=== PATIENT | female | born 1950 | race Caucasian/White ===

== ENCOUNTER 2019-11-04 18:22 | Inpatient (IN) | payer OTHER, MEDICARE ==
[2019-11-04] MEDS ORDERED: Senokot S 8.6-50 MG TAB PO PRN (19:14)
[2019-11-04] MEDS ORDERED: Ondansetron ODT 4 MG TAB PO PRN (19:14)
[2019-11-04 19:24] VITALS: BMI 31.4
[2019-11-04] MEDS ORDERED: Dextrose 50% Abboject 50 ML SYRINGE SLOW IVP PRN (19:32)
[2019-11-04] MEDS ORDERED: Albuterol Sulfate 2.5 mg/3 ml Neb NEB PRN (20:06)
[2019-11-04] MEDS ORDERED: fentaNYL 50 mcg/hour Patch TD SCH (21:00)
[2019-11-04] MEDS: Atorvastatin Calcium 10 MG TAB PO SCH ×2 (21:45→21:46)
[2019-11-04] MEDS: Docusate 100 MG CAP PO SCH (21:45)
[2019-11-04] MEDS: Amitriptyline HCl 25 MG TAB PO SCH (21:45)
[2019-11-04] MEDS: Budesonide 0.5 MG/2 ML NEB NEB SCH (21:47)
[2019-11-04] MEDS: Arformoterol 15 MCG/2 ML NEB NEB SCH (21:47)
--- NOTE | 2019-11-05 01:46 | HP ---
CHIEF COMPLAINT: Admission following right leg fracture. HISTORY OF PRESENT ILLNESS: The patient is a 68-year-old female with a past medical history of CAD, CKD, diabetes, chronic systolic CHF with an EF of 45% to 50%, and COPD with chronic O2 use, who initially was admitted to [facility] in [place] with MIL in August and after discharging home, fell twice. The patient suffered a right distal comminuted femur fracture as well as a right fibular fracture and has since been hospitalized at [facility]. The patient was deemed to be nonoperative and is in a straight leg brace and will be nonweightbearing on the right leg for quite some time. The patient is due to have followup with Dr. Bishop with Orthopedics in 4 weeks. During the course of the hospitalization, the patient developed coffee-grounds emesis and her hemoglobin was dropping. She was seen in consultation with Dr. Leon, who did an EGD and showed an area of oozing at the anastomosis from her gastric bypass. She is now on Protonix twice a day. She did receive 1 unit of packed red blood cells while in the hospital and her hemoglobin was stable at 8.7 this morning. The patient states that she has had a history of depression and has had suicidal attempts in 2 to 3 years ago and states that she is still depressed, but not actively suicidal at this moment. The patient also has chronic Percocet usage for at least 15 years, taking 10/325 at least 4 a day, sometimes more and sometimes less. During recent hospitalization , she was placed on a fentanyl patch and she has this on currently and it is due to be changed today. The patient was sent to [facility] without report being called between the nursing staff. The patient states she does have what pain in the right leg, but the pain is manageable and has gotten a little bit better over the past few days. PAST MEDICAL HISTORY: 1. Coronary artery disease. 2. History of CT x2 with stent placement x1. 3. CKD, stage 4. 4. Rheumatoid arthritis. 5. Type 2 diabetes. 6. Chronic systolic CHF with an EF of 45% to 50%. 7. COPD with chronic O2 usage of 4 L. PAST SURGICAL HISTORY: 1. Cholecystectomy. 2. Hysterectomy. 3. Appendectomy. 4. Gastric bypass. 5. Bilateral hip replacements. 6. Bilateral knee replacements. 7. Right shoulder surgery. 8. Right elbow surgery. ALLERGIES: NITROFURANTOIN. FAMILY HISTORY: Mom has had a stroke. Dad of an CT at 67 and multiple siblings have had diabetes and complications from diabetes. MEDICATIONS: 1. Protonix 40 mg p.o. b.i.d. 2. Pravastatin 40 mg p.o. at bedtime. 3. Actos 30 mg p.o. daily. 4. Gabapentin. Dosage is unknown on gabapentin. We will have to verify with the pharmacy as what we have is 400 mg twice a day. The patient states she takes 1200 mg twice a day. 5. Cymbalta 60 mg p.o. daily. 6. Cardizem 180 mg p.o. daily, extended release. 7. Hydroxychloroquine 200 mg p.o. daily. 8. Sulfasalazine 500 mg p.o. b.i.d. 9. Amitriptyline 25 mg p.o. at bedtime. 10. Bupropion XL 150 mg p.o. daily. 11. Metoprolol 25 mg p.o. b.i.d. 12. Fentanyl 50 mcg Duragesic patch q.72 hours. 13. Albuterol nebs q.4 hours p.r.n. 14. Budesonide nebs b.i.d. 15. Brovana inhaled twice a day. 16. Aspirin 81mg p.o. daily. 17. Docusate 100 mg p.o. b.i.d. 18. Zofran 4 mg p.o. q.8 hours p.r.n. 19. Folic acid 1 mg p.o. daily. 20. Iron sulfate 325 mg p.o. daily. REVIEW OF SYSTEMS: GENERAL: Negative for fever or chills. EYES: Negative for vision changes or eye pain. HEENT: Negative for sore throat, rhinorrhea, or nasal congestion. CARDIOVASCULAR: Negative for chest pain, palpitations, or PND. LUNGS: Negative for cough or wheezing. The patient does have some chronic shortness of breath with routine oxygen use at 4 L. GI: No current nausea or vomiting, but recent history of GI bleed. : Negative for dysuria or polyuria. MUSCULOSKELETAL: Positive for muscle aches, joint pain, and joint swelling. NEUROLOGIC: Negative for syncope or seizure. PSYCHIATRIC: Positive for depression with history of suicidal attempt. Negative for anxiety. PHYSICAL EXAMINATION: VITAL SIGNS: Temperature 98.3, pulse 68, respiratory rate 18, O2 saturation 98 % on 4 L via nasal cannula, and blood pressure 109/54. GENERAL: The patient is awake, alert, and is mildly confused, in no acute distress. HEENT: Eyes; pupils are equal, round, reactive to light and accommodation. Extraocular muscles intact. Oropharynx and nasopharynx without erythema or exudate. NECK: Supple without lymphadenopathy, thyromegaly, or bruits. CARDIOVASCULAR: Regular rate and rhythm without murmurs, gallops, or rubs. LUNGS: Clear to auscultation bilaterally without wheezing or rhonchi. ABDOMEN: Soft, nontender, and nondistended. Bowel sounds present. EXTREMITIES: There is no clubbing or cyanosis, but there is trace pedal edema. SKIN: The patient has an ulceration on her left anterior maher that has been present for multiple weeks and has a skin tear on her back and a dressing on her right lower abdomen lateral hip area. NEUROLOGIC: Cranial nerves 2 through 12 are grossly intact. Sensation is within normal limits. MUSCULOSKELETAL: The patient has full range of motion of the left lower extremity and bilateral upper extremities, but right lower extremities in a straight leg brace. Strength is intact. PSYCHIATRIC: The patient has a somewhat flat affect and frequently closes her eyes while talking to us. LABORATORY DATA: CBC: WBC 7.0, hemoglobin 8.6, hematocrit 28.4, and platelet count 182. Accu-Cheks have been 182, 120, 212, 225. BMP: Sodium 141, potassium 4.0, chloride 105, bicarb 26, BUN 20, creatinine 1.41, glucose 158, and calcium 8.9. ASSESSMENT AND PLAN: The patient is a 68-year-old female with a distal right comminuted femur fracture and right fibular fracture. 1. Right distal comminuted femur fracture and right fibular fracture: The patient is in a straight leg brace. She is nonweightbearing until cleared by Orthopedics. She is due to have a followup appointment in 4 weeks, but it is expected that she could be nonweightbearing for 6 to 12 weeks. We will consult PT and OT to work on strength and transfers. We will continue the fentanyl patch currently for pain control with tramadol for breakthrough. 2. Upper gastrointestinal bleed with anemia: The patient will continue on Protonix twice a day. We will repeat a CBC in the morning to trend her hemoglobin. 3. Type 2 diabetes: Continue current medications for diabetes and we will add sliding scale insulin. 4. Chronic systolic congestive heart failure with an EF of 45% to 50%: We will monitor for signs of fluid overload. Continue current medications. 5. Chronic obstructive pulmonary disease with chronic respiratory failure: We will continue oxygen at 4 L nasal cannula. Continue COPD medications and have nebs as needed. 6. Chronic kidney disease, stage 4: The patient's creatinine had improved to 1.41 today with an estimated GFR of 37 which puts in stage 3. We will continue to monitor this and try to avoid nephrotoxic agents as able. 7. Deep venous thrombosis prophylaxis: The patient will not be placed on anticoagulation secondary to recent bleed. 8. Gastrointestinal prophylaxis with Protonix. Job ID: [id number] MTDD
[2019-11-05 05:42] LABS: Band 4 % (5-11); Eosinophils 6 % (0-10); Hemoglobin 7.2 g/dL (12.0-16.0); Hypochromia MODERATE=16-30 cells (100X) (0-5/hpf); Lymphocytes 28 % (21-51); MDiff Complete? YES; Mean Corpuscular HGB CONC 29.6 g/dL (32.0-36.0); Mean Corpuscular Volume 97.8 fL (78.0-98.0); Mean Platelet Volume 7.1 fL (7.4-10.4); Monocytes 10 % (0-10); Neutrophil 52 % (42-75); Platelet Count 184 thou/uL (130-400); Platelet Morphology Comment Appears Adequate; RBC Distribution Width 14.2 % (11.5-14.5); Red Blood Cell (RBC) Count 2.48 mill/uL (4.20-5.40); White Blood Cell (WBC) Count 5.7 thou/uL (4.8-10.8)
[2019-11-05 05:45] LABS: ALT (SGPT) Less than 6 U/L (8-55); AST (SGOT) 10 U/L (5-34); Albumin 2.8 g/dL (3.4-4.8); Alkaline Phosphatase 47 U/L (40-110); Anion Gap 13 mmol/L (10-20); BUN (Urea Nitrogen) 23 mg/dL (9.8-20.1); Bilirubin, Total 0.3 mg/dL (0.2-1.2); Calc. Creatinine Clearance 54 mL/min (70-130); Calcium 8.7 mg/dL (7.8-10.44); Carbon Dioxide 26 mmol/L (23-31); Chloride 106 mmol/L (98-107); Estimated GFR-MDRD 32; Globulin 2.6 g/dL (2.4-3.5); Glucose 160 mg/dL (80-115); Potassium 4.3 mmol/L (3.5-5.1); Protein, Total 5.4 g/dL (6.0-8.3); Sodium 141 mmol/L (136-145)
[2019-11-05] MEDS: HumaLOG 300 UNITS/3 ML VIAL SC PRN ×3 (06:39→21:33)
[2019-11-05] MEDS: Pioglitazone HCl 15 MG TAB PO SCH (09:22)
[2019-11-05] MEDS: DULoxetine 30 MG CAP PO SCH (09:23)
[2019-11-05] MEDS: Hydroxychloroquine Sulfate 200 MG TAB PO SCH (09:23)
[2019-11-05] MEDS: Folic Acid 1 MG TAB PO SCH (09:23)
[2019-11-05] MEDS: Aspirin 81 mg Enteric Coated Tablet PO SCH (09:23)
[2019-11-05] MEDS: traMADol HCl 50 MG TAB PO PRN ×2 (09:24→21:20)
[2019-11-05] MEDS: Docusate 100 MG CAP PO SCH ×2 (09:24→21:09)
[2019-11-05] MEDS: Metoprolol Tartrate 25 MG TAB PO SCH (09:24)
[2019-11-05] MEDS: Budesonide 0.5 MG/2 ML NEB NEB SCH ×2 (09:28→21:14)
[2019-11-05] MEDS: Arformoterol 15 MCG/2 ML NEB NEB SCH ×2 (09:31→21:11)
--- NOTE | 2019-11-05 12:53 | PRG ---
DATE OF SERVICE: 11/05/2019 SUBJECTIVE: The patient is a 68-year-old female who was transferred to [place] last night for rehabilitation. The patient has a right distal comminuted femur fracture as well as a fibular fracture. The patient also had coffee-ground emesis with upper GI bleed while in the hospital as well, was noted to have oozing around her Dagmar-en-Y anastomosis. The patient's hemoglobin was 8.6 when she discharged yesterday. Today, the patient was quite confused. She does not know where she is. She does not remember being transferred to [place] and she has no idea why she would have been transferred to [place] this morning. OBJECTIVE: VITAL SIGNS: Temperature 97.1, pulse 85, respiratory rate 20, O2 saturation 95% on 4 L nasal cannula, and blood pressure 111/53. GENERAL: The patient is awake, but somewhat confused, in no acute distress. CARDIOVASCULAR: Regular rate and rhythm without murmurs, gallops, or rubs. LUNGS: Clear to auscultation bilaterally without wheezing or rhonchi. ABDOMEN: Soft, nontender, and nondistended. Bowel sounds present. EXTREMITIES: No clubbing or cyanosis. The patient has some trace pedal edema. MUSCULOSKELETAL: The patient has straight leg brace on the right leg. PSYCHIATRIC: The patient was just overall confused and takes a while to answer questions. LABORATORY DATA: CBC: WBCs 5.7, hemoglobin 7.2, hematocrit 24.2, and platelet count 184. CMP: Sodium 141, potassium 4.3, chloride 106, bicarb 26, BUN 23, creatinine 1.58, glucose 160, calcium 8.7, total bilirubin 0.3, AST 10, ALT less than 6, alkaline phosphatase 47, total protein 5.4, albumin 2.8. Accu-Cheks 188, 165, 187. ASSESSMENT AND PLAN: 1. Right comminuted distal femur fracture with right fibular fracture: The patient will begin working with therapy services today. She is nonweightbearing on that right lower extremity, but the goal is to help work her with transfers. I have also been talked to the case work aide to help us figure out what the safe plan for her going forward will be. 2. Upper gastrointestinal bleed with anemia: The patient's hemoglobin has dropped from 8.6 to 7.2 this morning. There has been no vomiting that we know of, and the patient does not think she is having any blood in her stool. We are going to repeat her CBC this afternoon, and her hemoglobin continues to fall. She may need to be transferred back to the hospital in [place]. 3. Type 2 diabetes: Continue current medications and Accu-Cheks with sliding scale insulin. 4. Chronic kidney disease, stage 2: The patient's GFR is currently 32. Her creatinine did increase a little bit. We will continue to trend this. 5. Hypertension: Blood pressure stable. 6. Chronic obstructive pulmonary disease with chronic respiratory failure: The patient remains on oxygen via nasal cannula, O2 sats are stable. Lungs are clear. 7. Chronic systolic congestive heart failure with an ejection fraction of 45% to 50%. There are no signs of fluid overload. At this time, we will continue her current medications. Job ID: [id number]
[2019-11-05 15:41] LABS: #Lymphocytes 1.3 thou/uL (1.20-3.40); Differential Comment SCANNED; Hemoglobin 7.5 g/dL (12.0-16.0); Mean Corpuscular HGB CONC 29.9 g/dL (32.0-36.0); Mean Corpuscular Hemoglobin 29.2 pg (27.0-31.0); Mean Corpuscular Volume 97.9 fL (78.0-98.0); Platelet Count 198 thou/uL (130-400); RBC Distribution Width 14.2 % (11.5-14.5); Red Blood Cell (RBC) Count 2.57 mill/uL (4.20-5.40); White Blood Cell (WBC) Count 5.6 thou/uL (4.8-10.8)
[2019-11-05 15:42] LABS: %Neutrophils 60.4 % (42.0-75.0)
[2019-11-05 15:43] LABS: #Basophils 0.1 thou/uL (0.0-0.2); #Eosinphils 0.2 thou/uL (0.0-0.7); #Monocytes 0.8 thou/uL (0.11-0.59); #Neutrophils 3.6 thou/uL (1.40-6.50); %Basophils 1.2 % (0.0-1.0); %Eosinophils 2.8 % (0.0-10.0); %Monocytes 13.6 % (0.0-10.0)
[2019-11-05] MEDS: Amitriptyline HCl 25 MG TAB PO SCH (21:09)
[2019-11-05] MEDS: Atorvastatin Calcium 10 MG TAB PO SCH ×2 (21:09→21:11)
[2019-11-06 05:25] LABS: Band 4 % (5-11); Eosinophils 4 % (0-10); Hemoglobin 7.3 g/dL (12.0-16.0); Lymphocytes 28 % (21-51); MDiff Complete? YES; Mean Corpuscular Hemoglobin 29.7 pg (27.0-31.0); Mean Corpuscular Volume 96.1 fL (78.0-98.0); Mean Platelet Volume 6.6 fL (7.4-10.4); Monocytes 13 % (0-10); Neutrophil 51 % (42-75); Platelet Count 199 thou/uL (130-400); Platelet Morphology Comment Appears Adequate; RBC Morphology Normal; Red Blood Cell (RBC) Count 2.45 mill/uL (4.20-5.40); White Blood Cell (WBC) Count 4.5 thou/uL (4.8-10.8)
[2019-11-06] MEDS: HumaLOG 300 UNITS/3 ML VIAL SC PRN ×3 (05:32→17:20)
--- NOTE | 2019-11-06 09:32 | PRG ---
DATE OF SERVICE: 11/06/2019 SUBJECTIVE: The patient is a 68-year-old female undergoing rehabilitation following falls with comminuted right femur fracture and right fibular fracture. The patient has also had recent GI bleed with anemia. The patient is currently on a fentanyl patch to control her pain, but states that is not enough for her pain. There is some question about whether her gabapentin dose is appropriate and the housekeeper caregiver is planning on calling the pharmacy today to verify about her home doses. OBJECTIVE: VITAL SIGNS: Temperature 96.9, pulse 79, respiration rate 20, O2 saturation 92% on 4 L. Blood pressure 106/52. GENERAL: The patient is awake and alert and in no acute distress. CARDIOVASCULAR: Regular rate and rhythm without murmurs, gallops, or rubs. LUNGS: Clear to auscultation bilaterally without wheezing or rhonchi. ABDOMEN: Soft, nontender, nondistended. Bowel sounds present. EXTREMITIES: No clubbing or cyanosis. There is some trace pedal edema bilaterally. MUSCULOSKELETAL: The patient has a straight leg brace on the right lower extremity. SKIN: There is a dressing on the left maher. PSYCHIATRIC: The patient displays appropriate mood and affect. However, she is somewhat confused about exactly what has been going on in the past couple of days. LABORATORY DATA: CBC: WBCs 4.5, hemoglobin 7.3, hematocrit 23.5, platelet count 199. Accu-Cheks 203, 215, 165. ASSESSMENT AND PLAN: 1. Right distal comminuted femur fracture and right fibular fracture: The patient remains in a straight leg brace. She will continue to work with PT and OT. Pain control has been challenging as the patient has a long-standing history of opioid dependence. We will continue with her fentanyl patch. If her gabapentin dose is in fact higher, we will adjust that and for right now continue tramadol for breakthrough. I discussed changing back to her home Percocet, but she did not think that would be enough either. 2. Anemia due to blood loss: The patient has not had any more coffee-grounds emesis and to her knowledge does not have any blood in her stool. However, her hemoglobin remains low. We will continue to trend this. If it starts to drop, she may need further GI intervention. She remains on PPI twice a day. We are continuing iron. 3. Chronic kidney disease stage 3: GFR yesterday was above 30. We will continue to monitor and try to avoid nephrotoxic agents as needed. 4. Type 2 diabetes: Continue sliding scale insulin. There were a couple of sugars in the low 200s yesterday, but patient is just now starting to eat. We can adjust medications based on what her sugars are for the next few days. 5. Chronic systolic congestive heart failure with an EF of 45% to 50%: No signs of volume overload. The patient appears to be at her baseline. 6. Hypertension. Blood pressure controlled. Job ID: [id number] MTDD
[2019-11-06] MEDS ORDERED: Gabapentin 400 MG CAP PO SCH (09:45)
[2019-11-06] MEDS: Hydroxychloroquine Sulfate 200 MG TAB PO SCH (09:59)
[2019-11-06] MEDS: Docusate 100 MG CAP PO SCH ×2 (09:59→21:30)
[2019-11-06] MEDS: DULoxetine 30 MG CAP PO SCH (10:00)
[2019-11-06] MEDS: Folic Acid 1 MG TAB PO SCH (10:00)
[2019-11-06] MEDS: Pioglitazone HCl 15 MG TAB PO SCH (10:01)
[2019-11-06] MEDS: Metoprolol Tartrate 25 MG TAB PO SCH (10:02)
[2019-11-06] MEDS: Aspirin 81 mg Enteric Coated Tablet PO SCH (10:02)
[2019-11-06] MEDS: Budesonide 0.5 MG/2 ML NEB NEB SCH ×2 (10:04→21:30)
[2019-11-06] MEDS: traMADol HCl 50 MG TAB PO PRN (10:53)
[2019-11-06] MEDS: Arformoterol 15 MCG/2 ML NEB NEB SCH ×2 (10:56→21:30)
[2019-11-06] MEDS: Atorvastatin Calcium 10 MG TAB PO SCH ×2 (21:30→21:31)
[2019-11-06] MEDS: Amitriptyline HCl 25 MG TAB PO SCH (21:30)
[2019-11-06] MEDS: Gabapentin 400 MG CAP PO SCH (21:30)
[2019-11-07 05:13] LABS: Eosinophils 3 % (0-10); Hemoglobin 7.2 g/dL (12.0-16.0); Hypochromia SLIGHT = 6-15 cells (100X) (0-5/hpf); Lymphocytes 37 % (21-51); MDiff Complete? YES; Mean Corpuscular Hemoglobin 29.7 pg (27.0-31.0); Mean Corpuscular Volume 95.8 fL (78.0-98.0); Mean Platelet Volume 6.5 fL (7.4-10.4); Monocytes 14 % (0-10); Neutrophil 46 % (42-75); Platelet Count 212 thou/uL (130-400); Platelet Morphology Comment Appears Adequate; RBC Distribution Width 14.4 % (11.5-14.5); Red Blood Cell (RBC) Count 2.42 mill/uL (4.20-5.40); White Blood Cell (WBC) Count 4.6 thou/uL (4.8-10.8)
[2019-11-07 05:39] LABS: Anion Gap 14 mmol/L (10-20); BUN (Urea Nitrogen) 28 mg/dL (9.8-20.1); Calc. Creatinine Clearance 47 mL/min (70-130); Carbon Dioxide 26 mmol/L (23-31); Chloride 106 mmol/L (98-107); Estimated GFR-MDRD 27; Glucose 109 mg/dL (80-115); Potassium 4.5 mmol/L (3.5-5.1); Sodium 141 mmol/L (136-145)
[2019-11-07] MEDS: traMADol HCl 50 MG TAB PO PRN (06:15)
[2019-11-07] MEDS: Pioglitazone HCl 15 MG TAB PO SCH (08:58)
[2019-11-07] MEDS: Docusate 100 MG CAP PO SCH ×2 (08:58→20:11)
[2019-11-07] MEDS: Hydroxychloroquine Sulfate 200 MG TAB PO SCH (08:59)
[2019-11-07] MEDS: Aspirin 81 mg Enteric Coated Tablet PO SCH (08:59)
[2019-11-07] MEDS: DULoxetine 30 MG CAP PO SCH (08:59)
[2019-11-07] MEDS: Gabapentin 400 MG CAP PO SCH ×2 (08:59→20:10)
[2019-11-07] MEDS: Folic Acid 1 MG TAB PO SCH (08:59)
[2019-11-07] MEDS: Metoprolol Tartrate 25 MG TAB PO SCH (09:00)
[2019-11-07] MEDS: Arformoterol 15 MCG/2 ML NEB NEB SCH ×2 (09:00→20:12)
[2019-11-07] MEDS: Budesonide 0.5 MG/2 ML NEB NEB SCH ×2 (09:04→20:11)
--- NOTE | 2019-11-07 09:09 | PRG ---
DATE OF SERVICE: 11/07/2019 SUBJECTIVE: The patient is a 68-year-old female, undergoing rehabilitation following right distal comminuted femur fracture as well as right fibular fracture from a fall. The patient is sitting up in bed and states that she does feel better. She was able to get the increased doses of gabapentin and tramadol yesterday and notes that she was able to sleep well and it is better controlling her pain. She denies any other chronic complaints this morning, including no shortness of breath, no cough, no abdominal pain, nausea or vomiting. OBJECTIVE: VITAL SIGNS: Temperature 98.8, pulse 66, respiratory rate 18, O2 sat 93% on 4 L, and blood pressure was 90/53. GENERAL: The patient is awake, alert, oriented, in no acute distress. CARDIOVASCULAR: Regular rate and rhythm without murmurs, gallops or rubs. LUNGS: Clear to auscultation bilaterally without wheezing or rhonchi. ABDOMEN: Soft and nontender to palpation with bowel sounds present. EXTREMITIES: No clubbing or cyanosis. The patient does have some trace pedal edema bilaterally. MUSCULOSKELETAL: The patient has a straight leg raise on the right lower extremity. PSYCHIATRIC: The patient has appropriate mood and affect and is less confused today. LABORATORY DATA: 1. CBC: WBCs 4.6, hemoglobin 7.2, hematocrit 23.2, and platelet count 212. 2. BMP: Sodium 141, potassium 4.5, chloride 106, bicarb 26, BUN 28, creatinine 1.84, glucose 109, and calcium 9.0. 3. Iron is pending. ASSESSMENT AND PLAN: 1. Right distal comminuted femur fracture with right fibular fracture: The patient remains in a straight leg brace. Her pain is better controlled with the adjusted doses of tramadol and gabapentin, and she continues on a fentanyl patch. 2. Chronic kidney disease, stage 4: Creatinine did worsen just a little bit. We will continue to trend this. Per history, she does have stage 4 chronic kidney disease, so this may be close to her baseline. We will encourage p.o. hydration. 3. Blood loss anemia: The patient's hemoglobin is 7.2, which is holding steady. She has had no acute bleeding episodes. We will continue to trend. Her iron is still pending at this time. 4. Type 2 diabetes: Blood sugars have been controlled. 5. Hypertension: The patient's blood pressure was slightly low overnight, but she is asymptomatic and is feeling well and looks good this morning. 6. Rheumatoid arthritis: The patient is planning on getting someone to bring her home sulfasalazine, so she can take it as this is not on her formulary. 7. History of gastrointestinal bleed: Continue Protonix twice a day. 8. Ulceration of the left lower extremity: Continue wound care. Job ID: [id number] MTDD
[2019-11-07] MEDS: HumaLOG 300 UNITS/3 ML VIAL SC PRN ×2 (12:00→21:43)
[2019-11-07 14:34] LABS: Iron 24 ug/dL (50-170)
[2019-11-07] MEDS: Amitriptyline HCl 25 MG TAB PO SCH (20:11)
[2019-11-07] MEDS: Atorvastatin Calcium 10 MG TAB PO SCH ×2 (20:11)
[2019-11-08 05:22] LABS: #Basophils 0.1 thou/uL (0.0-0.2); #Eosinphils 0.2 thou/uL (0.0-0.7); #Lymphocytes 1.6 thou/uL (1.20-3.40); #Monocytes 0.6 thou/uL (0.11-0.59); #Neutrophils 2.8 thou/uL (1.40-6.50); %Basophils 1.6 % (0.0-1.0); %Lymphocytes 29.8 % (21.0-51.0); %Monocytes 12.1 % (0.0-10.0); %Neutrophils 53.5 % (42.0-75.0); Hemoglobin 7.4 g/dL (12.0-16.0); Mean Corpuscular HGB CONC 29.9 g/dL (32.0-36.0); Mean Corpuscular Hemoglobin 29.1 pg (27.0-31.0); Mean Corpuscular Volume 97.4 fL (78.0-98.0); Mean Platelet Volume 6.4 fL (7.4-10.4); Platelet Count 244 thou/uL (130-400); RBC Distribution Width 14.5 % (11.5-14.5); Red Blood Cell (RBC) Count 2.55 mill/uL (4.20-5.40); White Blood Cell (WBC) Count 5.3 thou/uL (4.8-10.8)
[2019-11-08 05:40] LABS: Anion Gap 14 mmol/L (10-20); BUN (Urea Nitrogen) 34 mg/dL (9.8-20.1); Calc. Creatinine Clearance 46 mL/min (70-130); Calcium 9.1 mg/dL (7.8-10.44); Carbon Dioxide 27 mmol/L (23-31); Chloride 105 mmol/L (98-107); Estimated GFR-MDRD 27; Glucose 132 mg/dL (80-115); Potassium 4.7 mmol/L (3.5-5.1); Sodium 141 mmol/L (136-145)
[2019-11-08] MEDS: Folic Acid 1 MG TAB PO SCH (08:17)
[2019-11-08] MEDS: traMADol HCl 50 MG TAB PO PRN ×2 (08:17→15:52)
[2019-11-08] MEDS: Docusate 100 MG CAP PO SCH ×2 (08:17→20:21)
[2019-11-08] MEDS: Metoprolol Tartrate 25 MG TAB PO SCH (08:17)
[2019-11-08] MEDS: DULoxetine 30 MG CAP PO SCH (08:17)
[2019-11-08] MEDS: Aspirin 81 mg Enteric Coated Tablet PO SCH (08:17)
[2019-11-08] MEDS: Arformoterol 15 MCG/2 ML NEB NEB SCH ×2 (08:18→20:18)
[2019-11-08] MEDS: Pioglitazone HCl 15 MG TAB PO SCH (08:18)
[2019-11-08] MEDS: Budesonide 0.5 MG/2 ML NEB NEB SCH ×2 (08:18→20:20)
[2019-11-08] MEDS: Hydroxychloroquine Sulfate 200 MG TAB PO SCH (08:18)
--- NOTE | 2019-11-08 09:25 | PRG ---
DATE OF SERVICE: 11/08/2019 SUBJECTIVE: The patient is a 68-year-old female, undergoing rehabilitation. The patient states that she slept okay last night, and the pain was fairly well controlled on the right lower extremity. When I was examining the patient, physical therapy was coming in to get her ready to start therapy this morning. OBJECTIVE: VITAL SIGNS: Temperature 98.1, pulse 86, respiration rate 19, O2 saturation 91% on 4 L nasal cannula, and blood pressure 115/58. GENERAL: The patient is awake, alert, oriented, in no acute distress. CARDIOVASCULAR: Regular rate and rhythm without murmurs, gallops, or rubs. LUNGS: Clear to auscultation bilaterally without wheezing or rhonchi. ABDOMEN: Soft, nontender, and nondistended. Bowel sounds present. EXTREMITIES: There is no clubbing or cyanosis. The patient does have stable trace pedal edema bilaterally. MUSCULOSKELETAL: Straight leg brace is in place on the right. SKIN: There is a bandage in place on the left lower leg covering the ulceration. PSYCHIATRIC: The patient displays appropriate mood and affect. LABORATORY DATA: CBC: WBCs 5.3, hemoglobin 7.4, hematocrit 24.8, and platelet count 244. BMP: Sodium 141, potassium 4.7, chloride 105, bicarbonate 27, BUN 34, creatinine 1.88, glucose 132, and calcium 9.1. Iron 24. ASSESSMENT AND PLAN: 1. Right distal comminuted femur fracture with right fibular fracture: The patient remains in a straight leg brace and is nonweightbearing on the right lower extremity. She will continue PT and OT. We will continue current medications for pain control. 2. Anemia with iron deficiency and recent history of acute blood loss: We will restart the patient on iron. We are going to restart this couple of days ago, but the iron lab was pending and since it is low, we will start her on iron. We will continue to trend her hemoglobin, but it has been stable over the past several days, and she has no evidence of acute blood loss at this time. 3. Chronic kidney disease, stage 4: Creatinine appears to be near the patient's baseline. Discussed making certain that she is staying hydrated during the day. 4. Type 2 diabetes: Blood sugars were controlled. No change to medications. 5. Hypertension: Blood pressure was controlled. 6. Chronic obstructive pulmonary disease with chronic respiratory failure: The patient remains on oxygen, running at 4 L. Lungs are clear today. We will continue nebs as ordered. 7. Gastrointestinal prophylaxis with Protonix b.i.d. due to recent gastrointestinal bleed. 8. Deep venous thrombosis prophylaxis: Lovenox is held secondary to the patient's recent gastrointestinal bleed. Job ID: [id number]
[2019-11-08] MEDS: Gabapentin 400 MG CAP PO SCH ×2 (09:59→20:19)
[2019-11-08] MEDS: HumaLOG 300 UNITS/3 ML VIAL SC PRN ×2 (12:02→17:43)
[2019-11-08] MEDS: Atorvastatin Calcium 10 MG TAB PO SCH ×2 (20:20)
[2019-11-08] MEDS: Amitriptyline HCl 25 MG TAB PO SCH (20:20)
--- NOTE | 2019-11-09 09:22 | PRG ---
DATE OF SERVICE: 11/09/2019 SUBJECTIVE: The patient is a 68-year-old female, undergoing rehabilitation following right distal comminuted femur fracture and right fibular fracture. The patient stated that she rested okay overnight. The patient stated that she has been thinking about what her discharge plans will be. She knows that it will be a long time before she is cleared to walk. She does not really have any resources or family in this area and that has caused her some frustration. OBJECTIVE: VITAL SIGNS: Temperature 97.6, pulse 88, respiratory rate 18, O2 saturation 92% on 4 L nasal cannula, and blood pressure 118/55. GENERAL: The patient is awake, alert, oriented, and in no acute distress. CARDIOVASCULAR: Regular rate and rhythm without murmurs, gallops, or rubs. LUNGS: Clear to auscultation bilaterally without wheezing or rhonchi. ABDOMEN: Soft, nontender, and nondistended. Bowel sounds present. EXTREMITIES: There is no clubbing or cyanosis. There is chronic stable pedal edema. SKIN: There is a bandage in place on the left lower leg covering her ulceration. MUSCULOSKELETAL: There is a straight leg brace in place on the right lower extremity. LABORATORY DATA: Accu-Cheks 235, 199, 140, 120. ASSESSMENT AND PLAN: 1. Right distal comminuted femur fracture with right fibular fracture: Continue Therapy Services. I believe Case Management is helping to plan for whenever she will need to be discharged. Right now, we are working on hopefully trying to transfer and to increase her upper arm strength. The patient is in agreement with this plan. Continue current medications for pain relief. 2. Chronic kidney disease, stage 4: We will avoid nephrotoxic agents and continue to trend. 3. Anemia: Hemoglobin had stabilized. We will repeat her hemoglobin in the next couple of days. 4. Hypertension: Blood pressure is controlled. 5. Type 2 diabetes: Blood sugars are stable. 6. Chronic systolic congestive heart failure: No signs of acute exacerbation. 7. Gastrointestinal prophylaxis with Protonix. Due to the patient's recent gastrointestinal bleed, there is no deep venous thrombosis prophylaxis. Job ID: [id number]
[2019-11-09] MEDS: Folic Acid 1 MG TAB PO SCH (09:30)
[2019-11-09] MEDS: Budesonide 0.5 MG/2 ML NEB NEB SCH ×2 (09:30→20:44)
[2019-11-09] MEDS: DULoxetine 30 MG CAP PO SCH (09:30)
[2019-11-09] MEDS: Arformoterol 15 MCG/2 ML NEB NEB SCH ×2 (09:30→20:44)
[2019-11-09] MEDS: Pioglitazone HCl 15 MG TAB PO SCH (09:30)
[2019-11-09] MEDS: Metoprolol Tartrate 25 MG TAB PO SCH (09:30)
[2019-11-09] MEDS: traMADol HCl 50 MG TAB PO PRN ×2 (09:31→17:19)
[2019-11-09] MEDS: Hydroxychloroquine Sulfate 200 MG TAB PO SCH (09:31)
[2019-11-09] MEDS: Gabapentin 400 MG CAP PO SCH ×2 (09:32→20:43)
[2019-11-09] MEDS: Docusate 100 MG CAP PO SCH ×2 (09:32→20:43)
[2019-11-09] MEDS: Aspirin 81 mg Enteric Coated Tablet PO SCH (09:32)
[2019-11-09] MEDS: HumaLOG 300 UNITS/3 ML VIAL SC PRN ×2 (12:35→21:24)
[2019-11-09] MEDS: sulfaSALAzine 500 MG TAB PO SCH ×2 (18:31→20:44)
[2019-11-09] MEDS: Atorvastatin Calcium 10 MG TAB PO SCH (20:43)
[2019-11-09] MEDS: Amitriptyline HCl 25 MG TAB PO SCH (20:44)
[2019-11-10] MEDS: traMADol HCl 50 MG TAB PO PRN (09:11)
[2019-11-10] MEDS: Acetaminophen 325 MG TAB PO PRN (09:12)
[2019-11-10] MEDS: Docusate 100 MG CAP PO SCH ×2 (09:13→20:45)
[2019-11-10] MEDS: Metoprolol Tartrate 25 MG TAB PO SCH (09:13)
[2019-11-10] MEDS: Folic Acid 1 MG TAB PO SCH (09:13)
[2019-11-10] MEDS: Aspirin 81 mg Enteric Coated Tablet PO SCH (09:13)
[2019-11-10] MEDS: DULoxetine 30 MG CAP PO SCH (09:13)
[2019-11-10] MEDS: Hydroxychloroquine Sulfate 200 MG TAB PO SCH (09:13)
[2019-11-10] MEDS: sulfaSALAzine 500 MG TAB PO SCH ×2 (09:13→20:45)
[2019-11-10] MEDS: Gabapentin 400 MG CAP PO SCH ×2 (09:14→20:45)
[2019-11-10] MEDS: Pioglitazone HCl 15 MG TAB PO SCH (09:14)
[2019-11-10] MEDS: Arformoterol 15 MCG/2 ML NEB NEB SCH ×2 (09:14→20:46)
[2019-11-10] MEDS: Budesonide 0.5 MG/2 ML NEB NEB SCH ×2 (09:15→20:45)
[2019-11-10] MEDS: HumaLOG 300 UNITS/3 ML VIAL SC PRN ×2 (11:53→22:11)
[2019-11-10] MEDS: fentaNYL 50 mcg/hour Patch TD SCH (20:44)
[2019-11-10] MEDS: Atorvastatin Calcium 10 MG TAB PO SCH (20:45)
[2019-11-10] MEDS: Amitriptyline HCl 25 MG TAB PO SCH (20:45)
[2019-11-11] MEDS: Aspirin 81 mg Enteric Coated Tablet PO SCH (08:23)
[2019-11-11] MEDS: Folic Acid 1 MG TAB PO SCH (08:24)
[2019-11-11] MEDS: Metoprolol Tartrate 25 MG TAB PO SCH (08:24)
[2019-11-11] MEDS: sulfaSALAzine 500 MG TAB PO SCH ×2 (08:24→21:06)
[2019-11-11] MEDS: Gabapentin 400 MG CAP PO SCH ×2 (08:26→21:06)
[2019-11-11] MEDS: Acetaminophen 325 MG TAB PO PRN (08:26)
[2019-11-11] MEDS: Pioglitazone HCl 15 MG TAB PO SCH (08:26)
[2019-11-11] MEDS: Docusate 100 MG CAP PO SCH ×2 (08:27→21:06)
[2019-11-11] MEDS: traMADol HCl 50 MG TAB PO PRN (08:27)
[2019-11-11] MEDS: DULoxetine 30 MG CAP PO SCH (08:29)
[2019-11-11] MEDS: Hydroxychloroquine Sulfate 200 MG TAB PO SCH (08:29)
[2019-11-11] MEDS: Budesonide 0.5 MG/2 ML NEB NEB SCH ×2 (08:30→21:05)
[2019-11-11] MEDS: Arformoterol 15 MCG/2 ML NEB NEB SCH ×2 (08:30→20:55)
[2019-11-11] MEDS: HumaLOG 300 UNITS/3 ML VIAL SC PRN (17:08)
--- NOTE | 2019-11-11 19:19 | PRG ---
DATE OF SERVICE: 11/11/2019 SUBJECTIVE: The patient is at [facility] for rehabilitation following a right distal comminuted femur fracture and right fibular fracture. The patient states that she did not sleep very well last night. She states that she feels like she is struggling with the pain a little bit more, but then later in the conversation, she states that the pain medicines are working very well. The patient is somewhat confused at times. OBJECTIVE: VITAL SIGNS: Temperature 97.9, pulse 89, respiration rate 18, O2 saturation 92% on 4 L, and blood pressure 127/55. GENERAL: The patient is awake, alert, somewhat confused, and in no acute distress. CARDIOVASCULAR: Regular rate and rhythm without murmurs, gallops, or rubs. LUNGS: Clear to auscultation bilaterally without wheezing or rhonchi. ABDOMEN: Soft, nontender, and nondistended. Bowel sounds present. EXTREMITIES: There is no clubbing or cyanosis. The patient does have stable pedal edema. SKIN: There is a bandage in place on the left lower extremity covering an ulcer. MUSCULOSKELETAL: The patient has a straight leg brace in place. LABORATORY DATA: Accu-Cheks 230, 137, 202, and 196. ASSESSMENT AND PLAN: 1. Right distal comminuted femur fracture with right fibular fracture: The patient will continue working with Therapy Services. The patient needs to build up her arm strength to kind of help with transfers. 2. Generalized deconditioning: As above. 3. Type 2 diabetes: Blood sugars are stable. Continue current management. 4. Hypertension: Blood pressure is well controlled. 5. Chronic obstructive pulmonary disease: Continue oxygen at current levels and breathing treatments as indicated. 6. Chronic kidney disease stage 4: We will repeat BMP in the morning. 7. Anemia: Repeat CBC in the morning to make certain hemoglobin is remaining stable. 8. Disposition: The patient needs to talk with Case Management when they are here tomorrow to discuss what discharge plans look like as the patient would not be safe to go home by herself. Job ID: [id number]
[2019-11-11] MEDS: Atorvastatin Calcium 10 MG TAB PO SCH (21:06)
[2019-11-11] MEDS: Amitriptyline HCl 25 MG TAB PO SCH (21:06)
[2019-11-12 05:54] LABS: #Basophils 0.1 thou/uL (0.0-0.2); #Eosinphils 0.2 thou/uL (0.0-0.7); #Lymphocytes 1.5 thou/uL (1.20-3.40); #Monocytes 0.6 thou/uL (0.11-0.59); #Neutrophils 3.1 thou/uL (1.40-6.50); %Basophils 0.9 % (0.0-1.0); %Eosinophils 3.1 % (0.0-10.0); %Lymphocytes 27.2 % (21.0-51.0); %Monocytes 11.6 % (0.0-10.0); %Neutrophils 57.2 % (42.0-75.0); Hemoglobin 7.3 g/dL (12.0-16.0); Mean Corpuscular HGB CONC 29.4 g/dL (32.0-36.0); Mean Corpuscular Hemoglobin 28.9 pg (27.0-31.0); Mean Corpuscular Volume 98.5 fL (78.0-98.0); Mean Platelet Volume 6.3 fL (7.4-10.4); Platelet Count 277 thou/uL (130-400); RBC Distribution Width 14.4 % (11.5-14.5); Red Blood Cell (RBC) Count 2.53 mill/uL (4.20-5.40); White Blood Cell (WBC) Count 5.5 thou/uL (4.8-10.8)
[2019-11-12 06:07] LABS: Anion Gap 14 mmol/L (10-20); BUN (Urea Nitrogen) 38 mg/dL (9.8-20.1); Calc. Creatinine Clearance 45 mL/min (70-130); Calcium 8.9 mg/dL (7.8-10.44); Carbon Dioxide 29 mmol/L (23-31); Chloride 103 mmol/L (98-107); Estimated GFR-MDRD 26; Glucose 101 mg/dL (80-115); Sodium 141 mmol/L (136-145)
[2019-11-12] MEDS: Aspirin 81 mg Enteric Coated Tablet PO SCH (09:08)
[2019-11-12] MEDS: Arformoterol 15 MCG/2 ML NEB NEB SCH ×2 (09:08→21:19)
[2019-11-12] MEDS: Budesonide 0.5 MG/2 ML NEB NEB SCH ×2 (09:08→21:24)
[2019-11-12] MEDS: DULoxetine 30 MG CAP PO SCH (09:09)
[2019-11-12] MEDS: Pioglitazone HCl 15 MG TAB PO SCH (09:09)
[2019-11-12] MEDS: Metoprolol Tartrate 25 MG TAB PO SCH (09:09)
[2019-11-12] MEDS: Docusate 100 MG CAP PO SCH ×2 (09:09→21:24)
[2019-11-12] MEDS: Gabapentin 400 MG CAP PO SCH ×2 (09:09→21:23)
[2019-11-12] MEDS: sulfaSALAzine 500 MG TAB PO SCH ×2 (09:10→21:24)
[2019-11-12] MEDS: Hydroxychloroquine Sulfate 200 MG TAB PO SCH (09:10)
[2019-11-12] MEDS: Folic Acid 1 MG TAB PO SCH (09:10)
[2019-11-12] MEDS: traMADol HCl 50 MG TAB PO PRN ×2 (09:25→21:26)
--- NOTE | 2019-11-12 09:42 | PRG ---
DATE OF SERVICE: 11/12/2019 SUBJECTIVE: The patient is a 68-year-old female, undergoing rehabilitation following right distal femur fracture and right fibular fracture. The patient was initially sleeping when I walked into the room and you could hear some gurgling sounds. When she woke up, she has crackles in her lungs and a wet sounding cough. She denies shortness of breath and notes pain has been controlled. PHYSICAL EXAMINATION: VITAL SIGNS: Temperature 99.0, pulse 90, respiration rate 22, O2 saturation 90 % on 3.5 L, blood pressure 117/58. GENERAL: The patient is now awake, alert, and in no acute distress. CARDIOVASCULAR: Regular rate and rhythm without murmurs, gallops, or rubs. LUNGS: Crackles in bilateral bases with some upper respiratory sounds as well. Normal respiratory effort. ABDOMEN: Soft, nontender, nondistended. Bowel sounds present. EXTREMITIES: There is no clubbing or cyanosis. There is trace pedal edema, but this is stable. MUSCULOSKELETAL: The patient has straight leg brace on the right lower extremity. PSYCHIATRIC: The patient displays an appropriate mood and affect. LABORATORY DATA: 1. CBC: WBCs 5.5, hemoglobin 7.3, hematocrit 24.9, platelet count 277. 2. BMP: Sodium 141, potassium 5.0, chloride 103, bicarb 29, BUN 38, creatinine 1.90, glucose 101, calcium 8.9. 3. Accu-Cheks 202, 196, 74, 97. ASSESSMENT AND PLAN: 1. Right distal comminuted femur fracture and right fibular fracture: The patient will continue therapy services. She plans to speak with Case Management as she is available today to discuss discharge plans when it becomes time. 2. Chronic congestive heart failure with an EF of 45% to 50%: The patient has new crackles in the lungs today. We will add a BNP and get a chest x-ray. She did have a temp of 99.0. CHF and possible pneumonia are both in the differential. 3. Chronic kidney disease stage 4, creatinine is stable at 1.9. We will continue to monitor. 4. Anemia: The patient had a GI bleed in a recent hospitalization. Her hemoglobin has been holding steady between 7.3 and 7.6. She has no signs of active bleeding. We will continue to monitor this periodically. 5. Chronic obstructive pulmonary disease: The patient remains on 3-1/2 to 4 L of oxygen at all times. We will continue the neb treatments. Getting a chest x- ray as mentioned above. 6. Type-2 diabetes: Blood sugars are well controlled. 7. Hypertension: Blood pressure is controlled. Job ID: [id number] [facility]
[2019-11-12] MEDS: HumaLOG 300 UNITS/3 ML VIAL SC PRN (13:04)
--- NOTE | 2019-11-12 16:40 | RAD ---
EXAM: Chest PA and lateral: HISTORY: Crackles in the lungs. COMPARISON: 06/05/2017, 08/27/2019 FINDINGS: Heart: Cardiomegaly. Aorta: Atherosclerosis Pulmonary vessels: Normal Costophrenic angles: Trace bilateral effusions. Lungs: There are interstitial and alveolar opacities. Pneumothorax: No pneumothorax Osseous structures: Right humeral prosthesis IMPRESSION: Congestive heart failure. Continued surveillance is recommended.
[2019-11-12] MEDS: Atorvastatin Calcium 10 MG TAB PO SCH (21:24)
[2019-11-12] MEDS: Amitriptyline HCl 25 MG TAB PO SCH (21:24)
[2019-11-13 04:52] LABS: #Basophils 0.1 thou/uL (0.0-0.2); #Eosinphils 0.2 thou/uL (0.0-0.7); #Lymphocytes 1.6 thou/uL (1.20-3.40); #Monocytes 0.7 thou/uL (0.11-0.59); #Neutrophils 4.6 thou/uL (1.40-6.50); %Basophils 0.9 % (0.0-1.0); %Eosinophils 2.3 % (0.0-10.0); %Lymphocytes 21.9 % (21.0-51.0); %Monocytes 9.6 % (0.0-10.0); %Neutrophils 65.2 % (42.0-75.0); Hemoglobin 6.9 g/dL (12.0-16.0); Mean Corpuscular HGB CONC 29.3 g/dL (32.0-36.0); Mean Corpuscular Hemoglobin 28.6 pg (27.0-31.0); Mean Corpuscular Volume 97.5 fL (78.0-98.0); Mean Platelet Volume 5.9 fL (7.4-10.4); Platelet Count 266 thou/uL (130-400); RBC Distribution Width 14.6 % (11.5-14.5); Red Blood Cell (RBC) Count 2.41 mill/uL (4.20-5.40); White Blood Cell (WBC) Count 7.1 thou/uL (4.8-10.8)
[2019-11-13 05:10] LABS: Anion Gap 13 mmol/L (10-20); BUN (Urea Nitrogen) 44 mg/dL (9.8-20.1); Calc. Creatinine Clearance 47 mL/min (70-130); Calcium 8.2 mg/dL (7.8-10.44); Carbon Dioxide 28 mmol/L (23-31); Chloride 102 mmol/L (98-107); Estimated GFR-MDRD 28; Glucose 114 mg/dL (80-115); Potassium 4.4 mmol/L (3.5-5.1); Sodium 139 mmol/L (136-145)
[2019-11-13] MEDS: Gabapentin 400 MG CAP PO SCH ×2 (08:18→21:02)
[2019-11-13] MEDS: Docusate 100 MG CAP PO SCH ×2 (08:19→21:02)
[2019-11-13] MEDS: Aspirin 81 mg Enteric Coated Tablet PO SCH (08:19)
[2019-11-13] MEDS: sulfaSALAzine 500 MG TAB PO SCH ×2 (08:19→21:02)
[2019-11-13] MEDS: Folic Acid 1 MG TAB PO SCH (08:19)
[2019-11-13] MEDS: Pioglitazone HCl 15 MG TAB PO SCH (08:19)
[2019-11-13] MEDS: Hydroxychloroquine Sulfate 200 MG TAB PO SCH (08:19)
[2019-11-13] MEDS: traMADol HCl 50 MG TAB PO PRN ×2 (08:20→17:43)
[2019-11-13] MEDS: DULoxetine 30 MG CAP PO SCH (08:20)
[2019-11-13] MEDS: Metoprolol Tartrate 25 MG TAB PO SCH (08:21)
[2019-11-13] MEDS: Arformoterol 15 MCG/2 ML NEB NEB SCH ×2 (08:21→20:58)
[2019-11-13] MEDS: Budesonide 0.5 MG/2 ML NEB NEB SCH ×2 (08:23→21:07)
[2019-11-13] MEDS: HumaLOG 300 UNITS/3 ML VIAL SC PRN ×2 (12:38→17:50)
[2019-11-13] MEDS ORDERED: Furosemide 40 MG TAB PO SCH (14:45)
--- NOTE | 2019-11-13 15:06 | PRG ---
DATE OF SERVICE: 11/13/2019 SUBJECTIVE: The patient is resting comfortably, in no acute distress. The patient notes that her breathing is a little bit better. The patient quickly falls back to sleep after answering a few questions. OBJECTIVE: VITAL SIGNS: Temperature 98.8, pulse 81, respiration rate 23, O2 saturation 98% on 3-1/2 L, blood pressure 103/51. GENERAL: The patient is awake, but sleepy, and in no acute distress. CARDIOVASCULAR: Regular rate and rhythm without murmurs, gallops, or rubs. LUNGS: Clear to auscultation bilaterally without wheezing or rhonchi. The crackles have improved. ABDOMEN: Soft, nontender, nondistended. Bowel sounds present. EXTREMITIES: There is no clubbing or cyanosis. The patient has trace pedal edema. MUSCULOSKELETAL: The patient has a straight leg brace on the right lower extremity. SKIN: The patient has a bandage in place on the left lower leg. LABORATORY DATA: 1. CBC: WBC 7.1, hemoglobin 6.9, hematocrit 23.5, platelet count 266. 2. BMP: Sodium 139, potassium 4.4, chloride 102, bicarb 28, BUN 44, creatinine 1.81, glucose 114, calcium 8.2. 3. Accu-Cheks; 139, 174, 117, 186. ASSESSMENT AND PLAN: 1. Right distal comminuted femur fracture with right fibular fracture: The patient continues to be nonweightbearing on the right lower extremity. It is very difficult to get up in out of bed. She has a PureWick catheter in place, so she cannot get up to go to the restroom. Continue therapy on Friday. 2. Acute worsening of chronic anemia in the setting of a recent gastrointestinal bleed: The patient has had no coffee-grounds emesis and no blood in stool reported. The patient's hemoglobin did drop to 6.9 today. We will type and cross 1 unit of packed cells and transfuse. 3. Chronic systolic congestive heart failure with an ejection fraction of 45% 50%: With the patient's heart failure and the patient's anemia, we will transfuse a unit and give a dose of Lasix following the transfusion. 4. Chronic kidney disease stage 4: The patient's creatinine is stable at 1.8. We will continue to monitor. 5. Chronic obstructive pulmonary disease requiring oxygen: Continue oxygen at current requirements. Continue neb treatments. Lung sounds are clearer today. 6. Type 2 diabetes: Blood sugars are controlled. Job ID: [id number]
[2019-11-13] MEDS: Acetaminophen 325 MG TAB PO PRN (17:43)
[2019-11-13] MEDS ORDERED: Sodium Chloride 0.9% 40 ML ONE (17:54)
[2019-11-13] MEDS: Amitriptyline HCl 25 MG TAB PO SCH (21:03)
[2019-11-13] MEDS: Atorvastatin Calcium 10 MG TAB PO SCH (21:03)
[2019-11-13] MEDS: fentaNYL 50 mcg/hour Patch TD SCH (21:25)
[2019-11-14 05:04] LABS: Hemoglobin 7.7 g/dL (12.0-16.0); Mean Corpuscular Volume 96.8 fL (78.0-98.0); Red Blood Cell (RBC) Count 2.63 mill/uL (4.20-5.40); White Blood Cell (WBC) Count 6.8 thou/uL (4.8-10.8)
[2019-11-14 05:05] LABS: #Basophils 0.1 thou/uL (0.0-0.2); #Eosinphils 0.2 thou/uL (0.0-0.7); #Lymphocytes 1.7 thou/uL (1.20-3.40); #Monocytes 0.6 thou/uL (0.11-0.59); #Neutrophils 4.2 thou/uL (1.40-6.50); %Basophils 1.1 % (0.0-1.0); %Eosinophils 3.5 % (0.0-10.0); %Lymphocytes 24.7 % (21.0-51.0); %Monocytes 9.6 % (0.0-10.0); %Neutrophils 61.2 % (42.0-75.0); Mean Corpuscular HGB CONC 30.1 g/dL (32.0-36.0); Mean Corpuscular Hemoglobin 29.1 pg (27.0-31.0); Mean Platelet Volume 6.5 fL (7.4-10.4); Platelet Count 274 thou/uL (130-400); RBC Distribution Width 14.5 % (11.5-14.5)
[2019-11-14 05:22] LABS: Anion Gap 13 mmol/L (10-20); Carbon Dioxide 28 mmol/L (23-31); Chloride 101 mmol/L (98-107); Potassium 4.2 mmol/L (3.5-5.1); Sodium 141 mmol/L (136-145)
[2019-11-14 05:23] LABS: BUN (Urea Nitrogen) 44 mg/dL (9.8-20.1); Calc. Creatinine Clearance 45 mL/min (70-130); Calcium 8.4 mg/dL (7.8-10.44); Estimated GFR-MDRD 26; Glucose 129 mg/dL (80-115)
[2019-11-14] MEDS: Pioglitazone HCl 15 MG TAB PO SCH (09:05)
[2019-11-14] MEDS: Gabapentin 400 MG CAP PO SCH ×2 (09:05→21:26)
[2019-11-14] MEDS: DULoxetine 30 MG CAP PO SCH (09:06)
[2019-11-14] MEDS: Folic Acid 1 MG TAB PO SCH (09:06)
[2019-11-14] MEDS: Acetaminophen 325 MG TAB PO PRN ×2 (09:07→21:31)
[2019-11-14] MEDS: Hydroxychloroquine Sulfate 200 MG TAB PO SCH (09:07)
[2019-11-14] MEDS: Metoprolol Tartrate 25 MG TAB PO SCH (09:07)
[2019-11-14] MEDS: Aspirin 81 mg Enteric Coated Tablet PO SCH (09:07)
[2019-11-14] MEDS: traMADol HCl 50 MG TAB PO PRN ×2 (09:08→21:31)
[2019-11-14] MEDS: Docusate 100 MG CAP PO SCH ×2 (09:08→21:27)
[2019-11-14] MEDS: sulfaSALAzine 500 MG TAB PO SCH ×2 (09:08→21:27)
[2019-11-14] MEDS: Arformoterol 15 MCG/2 ML NEB NEB SCH ×2 (09:10→21:11)
[2019-11-14] MEDS: Budesonide 0.5 MG/2 ML NEB NEB SCH ×2 (09:10→21:26)
[2019-11-14] MEDS: HumaLOG 300 UNITS/3 ML VIAL SC PRN (11:55)
[2019-11-14] MEDS: Atorvastatin Calcium 10 MG TAB PO SCH (21:27)
[2019-11-14] MEDS: Amitriptyline HCl 25 MG TAB PO SCH (21:27)
[2019-11-15] MEDS: traMADol HCl 50 MG TAB PO PRN ×2 (07:46→21:25)
[2019-11-15] MEDS: Acetaminophen 325 MG TAB PO PRN (07:46)
[2019-11-15] MEDS: Arformoterol 15 MCG/2 ML NEB NEB SCH ×2 (09:10→21:00)
[2019-11-15] MEDS: Aspirin 81 mg Enteric Coated Tablet PO SCH (09:10)
[2019-11-15] MEDS: Budesonide 0.5 MG/2 ML NEB NEB SCH ×2 (09:11→21:26)
[2019-11-15] MEDS: Docusate 100 MG CAP PO SCH ×2 (09:12→21:00)
[2019-11-15] MEDS: DULoxetine 30 MG CAP PO SCH (09:12)
[2019-11-15] MEDS: Folic Acid 1 MG TAB PO SCH (09:12)
[2019-11-15] MEDS: Gabapentin 400 MG CAP PO SCH ×2 (09:12→21:00)
[2019-11-15] MEDS: sulfaSALAzine 500 MG TAB PO SCH ×2 (09:13→21:00)
[2019-11-15] MEDS: Pioglitazone HCl 15 MG TAB PO SCH (09:13)
[2019-11-15] MEDS: Metoprolol Tartrate 25 MG TAB PO SCH (09:13)
[2019-11-15] MEDS: Hydroxychloroquine Sulfate 200 MG TAB PO SCH (09:14)
[2019-11-15] MEDS: HumaLOG 300 UNITS/3 ML VIAL SC PRN ×2 (11:56→17:22)
--- NOTE | 2019-11-15 18:11 | PRG ---
DATE OF SERVICE: 11/15/2019 SUBJECTIVE: The patient is a 68-year-old female, who is at [facility] for rehabilitation following a right femur fracture and right fibular fracture. The patient continues to be nonweightbearing. The patient did receive a blood transfusion over the week end and states that she had no increased shortness of breath after receiving the blood. The patient was able to rest well overnight. She continues to work with therapy and I was able to talk with therapy staff this morning, and there have not been a whole lot of improvement. The patient still requires pretty significant assist for any movement. She is not getting up to go to the restroom. She still has a PureWick catheter in place. OBJECTIVE: VITAL SIGNS: Temperature 99.0, pulse 82, respiratory rate 18, O2 saturation 93% on 3.5 L, blood pressure 116/56. GENERAL: The patient is awake, alert, and oriented and in no acute distress. CARDIOVASCULAR: Regular rate and rhythm without murmurs, gallops, or rubs. LUNGS: Clear to auscultation bilaterally without wheezing or rhonchi. ABDOMEN: Soft, nontender, nondistended with bowel sounds present. EXTREMITIES: There is no clubbing or cyanosis. The patient has stable pedal edema bilaterally. SKIN: There is a bandage in place on left lower extremity. Wound care photos have been examined and we will continue wound care. MUSCULOSKELETAL: The patient has a straight leg brace in place on the right lower extremity. LABORATORY DATA: 1. CBC: WBC 6.8, hemoglobin 7.7, hematocrit 25.5, platelet count 274. 2. Accu-Cheks 180, 129, 179, 157. ASSESSMENT AND PLAN: 1. Right distal comminuted femur fracture with right fibular fracture: The patient remains nonweightbearing on the right lower extremity. She continues PT and OT. I believe there is a care plan meeting tomorrow to try to discuss her progress and also disposition plans. The pain is stable with current medications. 2. Acute on chronic anemia: The patient's hemoglobin is improved after the 1 unit up to 7.7. She has had no bleeding episodes that we are aware of. We will continue to trend her hemoglobin with a CBC tomorrow. 3. Chronic kidney disease stage 4: Repeat BMP tomorrow. Trying to avoid nephrotoxic agents as able. 4. Type 2 diabetes: Blood sugars are controlled. 5. Chronic systolic congestive heart failure with an EF of 45% to 50%: The patient appears stable. She did receive a dose of Lasix following her transfusion. No increased edema is noted. 6. Chronic obstructive pulmonary disease with chronic oxygen requirement: Continue O2. Continue neb treatments. Lung sounds are clear today. Job ID: [id number]
[2019-11-15] MEDS: Amitriptyline HCl 25 MG TAB PO SCH (20:59)
[2019-11-15] MEDS: Atorvastatin Calcium 10 MG TAB PO SCH (21:00)
[2019-11-16 05:57] LABS: #Basophils 0.1 thou/uL (0.0-0.2); #Eosinphils 0.1 thou/uL (0.0-0.7); #Lymphocytes 1.6 thou/uL (1.20-3.40); #Monocytes 0.6 thou/uL (0.11-0.59); #Neutrophils 2.8 thou/uL (1.40-6.50); %Basophils 1.6 % (0.0-1.0); %Eosinophils 2.5 % (0.0-10.0); %Lymphocytes 31.2 % (21.0-51.0); %Monocytes 10.9 % (0.0-10.0); %Neutrophils 53.9 % (42.0-75.0); Hemoglobin 7.7 g/dL (12.0-16.0); Mean Corpuscular HGB CONC 29.9 g/dL (32.0-36.0); Mean Corpuscular Hemoglobin 28.9 pg (27.0-31.0); Mean Corpuscular Volume 96.6 fL (78.0-98.0); Mean Platelet Volume 6.7 fL (7.4-10.4); Platelet Count 292 thou/uL (130-400); RBC Distribution Width 14.3 % (11.5-14.5); Red Blood Cell (RBC) Count 2.66 mill/uL (4.20-5.40); White Blood Cell (WBC) Count 5.2 thou/uL (4.8-10.8)
[2019-11-16 06:07] LABS: Anion Gap 15 mmol/L (10-20); BUN (Urea Nitrogen) 38 mg/dL (9.8-20.1); Calc. Creatinine Clearance 48 mL/min (70-130); Calcium 8.6 mg/dL (7.8-10.44); Carbon Dioxide 27 mmol/L (23-31); Chloride 103 mmol/L (98-107); Estimated GFR-MDRD 28; Glucose 116 mg/dL (80-115); Potassium 4.5 mmol/L (3.5-5.1); Sodium 140 mmol/L (136-145)
[2019-11-16] MEDS: Acetaminophen 325 MG TAB PO PRN (08:04)
[2019-11-16] MEDS: traMADol HCl 50 MG TAB PO PRN (08:05)
[2019-11-16] MEDS: Arformoterol 15 MCG/2 ML NEB NEB SCH ×2 (09:43→21:00)
[2019-11-16] MEDS: Budesonide 0.5 MG/2 ML NEB NEB SCH ×2 (09:46→21:00)
[2019-11-16] MEDS: Docusate 100 MG CAP PO SCH ×2 (09:47→20:59)
[2019-11-16] MEDS: Pioglitazone HCl 15 MG TAB PO SCH (09:48)
[2019-11-16] MEDS: DULoxetine 30 MG CAP PO SCH (09:48)
[2019-11-16] MEDS: Metoprolol Tartrate 25 MG TAB PO SCH (09:48)
[2019-11-16] MEDS: Gabapentin 400 MG CAP PO SCH ×2 (09:48→20:59)
[2019-11-16] MEDS: Hydroxychloroquine Sulfate 200 MG TAB PO SCH (09:48)
[2019-11-16] MEDS: Folic Acid 1 MG TAB PO SCH (09:48)
[2019-11-16] MEDS: sulfaSALAzine 500 MG TAB PO SCH ×2 (09:49→21:00)
[2019-11-16] MEDS: Aspirin 81 mg Enteric Coated Tablet PO SCH (09:52)
--- NOTE | 2019-11-16 10:54 | PRG ---
DATE OF SERVICE: 11/16/2019 SUBJECTIVE: The patient is a 68-year-old female, undergoing rehabilitation following right distal femur fracture and right fibular fracture. The patient states that she was thinking about her condition yesterday and thinks that she may never walk again and she found that upsetting. She is eager to work on planning for what comes next. The patient states that her breathing is fine and her appetite is stable. OBJECTIVE: VITAL SIGNS: Temperature 98.6, pulse 79, respiration rate 18, O2 saturation 95% on 3.5 L via nasal cannula, and blood pressure 119/58. GENERAL: The patient is awake, alert, and oriented, in no acute distress. CARDIOVASCULAR: Regular rate and rhythm without murmurs, gallops, or rubs. LUNGS: Clear to auscultation bilaterally without wheezing or rhonchi. ABDOMEN: Soft, nontender, and nondistended. EXTREMITIES: There is no clubbing or cyanosis. The patient has trace pedal edema, which is stable. SKIN: There is bandage in place on the left lower extremity. MUSCULOSKELETAL: The patient has straight leg brace on the right lower extremity. PSYCHIATRIC: The patient displays appropriate mood and affect. LABORATORY DATA: 1. CBC: WBCs 5.2, hemoglobin 7.7, hematocrit 25.7, platelets 292. 2. BMP: Sodium 140, potassium 4.5, chloride 103, bicarb 27, BUN 38, creatinine 1.78, glucose 116, and calcium 8.6. 3. Accu-Cheks 179, 157, 105, 121. ASSESSMENT AND PLAN: 1. Right distal comminuted femur fracture with right fibular fracture: The patient will continue therapy. There is a care plan meeting today, where hopefully we can come up with a plan going forward. I do not think the patient will be able to live by herself at this moment. 2. Type 2 diabetes: Blood pressure stable. 3. Acute on chronic anemia: Hemoglobin has remained stable at 7.7 since her transfusion a few days ago. 4. Hypertension: Blood pressure is controlled. 5. Chronic obstructive pulmonary disease with chronic oxygen requirement: Continue O2. Continue nebs as needed. 6. Chronic systolic congestive heart failure: We will monitor for signs of fluid overload. The patient is stable at this time. 7. Chronic kidney disease stage 4: Creatinine is stable at 1.78. Job ID: [id number]
[2019-11-16] MEDS ORDERED: Acetaminophen 325 MG TAB PO PRN (11:30)
[2019-11-16] MEDS: HumaLOG 300 UNITS/3 ML VIAL SC PRN (12:08)
[2019-11-16] MEDS: Atorvastatin Calcium 10 MG TAB PO SCH (20:59)
[2019-11-16] MEDS: Amitriptyline HCl 25 MG TAB PO SCH (21:00)
[2019-11-16] MEDS: fentaNYL 50 mcg/hour Patch TD SCH (21:07)
[2019-11-17] MEDS: traMADol HCl 50 MG TAB PO PRN (07:30)
--- NOTE | 2019-11-17 08:46 | PRG ---
DATE OF SERVICE: 11/17/2019 SUBJECTIVE: The patient is a 68-year-old female, undergoing rehabilitation following right distal comminuted femur fracture and right fibular fracture. The patient met with the family preservation caseworker yesterday and was given a list of nursing homes to choose from as she is going to need long-term care. The patient states she does not know anything about any of the facilities here in [place] or [place]. The patient is able to sleep okay last night and denies other complaints this morning. OBJECTIVE: VITAL SIGNS: Temperature 97.1, pulse 73, respiratory rate 20, O2 saturation 92% on 3 L nasal cannula, blood pressure 120/58. GENERAL: The patient is awake, alert, oriented, in no acute distress. CARDIOVASCULAR: Regular rate and rhythm without murmurs, gallops, or rubs. LUNGS: Clear to auscultation bilaterally without wheezing or rhonchi. ABDOMEN: Soft, obese, nontender to palpation. EXTREMITIES: There is no clubbing or cyanosis. The patient has trace pedal edema. MUSCULOSKELETAL: The patient has straight leg brace in place on the right lower extremity and there is a bandage in place on the left lower extremity abrasion. PSYCHIATRIC: The patient displays appropriate mood and affect. LABORATORY DATA: Accu-Cheks: 263, 92, 35, 128. ASSESSMENT AND PLAN: 1. Right distal comminuted femur fracture with right fibular fracture: Spoke with nursing this morning, is going to try to arrange for her followup with Dr. Bishop. The patient remains nonweightbearing on the right lower extremity. She continues to work with PT and OT, but remains unable to significantly help with transfers. 2. Chronic anemia: Blood counts have been stable. We will recheck a CBC in the next few days. 3. Type 2 diabetes: Blood sugars are controlled. 4. Chronic systolic congestive heart failure: The patient will continue on current medications. She has no signs of fluid overload. 5. Chronic obstructive pulmonary disease with chronic oxygen requirement: O2 sats have been stable in the low 90s. Lung sounds are clear, this is more. Job ID: [id number]
[2019-11-17] MEDS: Budesonide 0.5 MG/2 ML NEB NEB SCH ×2 (09:08→20:24)
[2019-11-17] MEDS: Arformoterol 15 MCG/2 ML NEB NEB SCH ×2 (09:08→20:24)
[2019-11-17] MEDS: DULoxetine 30 MG CAP PO SCH (09:09)
[2019-11-17] MEDS: Metoprolol Tartrate 25 MG TAB PO SCH (09:10)
[2019-11-17] MEDS: Hydroxychloroquine Sulfate 200 MG TAB PO SCH (09:10)
[2019-11-17] MEDS: sulfaSALAzine 500 MG TAB PO SCH ×2 (09:10→20:23)
[2019-11-17] MEDS: Pioglitazone HCl 15 MG TAB PO SCH (09:10)
[2019-11-17] MEDS: Aspirin 81 mg Enteric Coated Tablet PO SCH (09:11)
[2019-11-17] MEDS: Gabapentin 400 MG CAP PO SCH ×2 (09:11→20:23)
[2019-11-17] MEDS: Docusate 100 MG CAP PO SCH ×2 (09:11→20:23)
[2019-11-17] MEDS: Folic Acid 1 MG TAB PO SCH (09:11)
[2019-11-17] MEDS: HumaLOG 300 UNITS/3 ML VIAL SC PRN (17:13)
[2019-11-17] MEDS: Amitriptyline HCl 25 MG TAB PO SCH (20:23)
[2019-11-17] MEDS: Atorvastatin Calcium 10 MG TAB PO SCH (20:23)
[2019-11-18] MEDS: Budesonide 0.5 MG/2 ML NEB NEB SCH ×2 (08:00→20:40)
[2019-11-18] MEDS: Arformoterol 15 MCG/2 ML NEB NEB SCH ×2 (08:00→20:39)
[2019-11-18] MEDS: DULoxetine 30 MG CAP PO SCH (08:01)
[2019-11-18] MEDS: traMADol HCl 50 MG TAB PO PRN (08:01)
[2019-11-18] MEDS: Docusate 100 MG CAP PO SCH ×2 (08:01→20:39)
[2019-11-18] MEDS: Aspirin 81 mg Enteric Coated Tablet PO SCH (08:02)
[2019-11-18] MEDS: Metoprolol Tartrate 25 MG TAB PO SCH (08:02)
[2019-11-18] MEDS: sulfaSALAzine 500 MG TAB PO SCH ×2 (08:02→20:38)
[2019-11-18] MEDS: Hydroxychloroquine Sulfate 200 MG TAB PO SCH (08:03)
[2019-11-18] MEDS: Pioglitazone HCl 15 MG TAB PO SCH (08:03)
[2019-11-18] MEDS: Folic Acid 1 MG TAB PO SCH (08:03)
--- NOTE | 2019-11-18 08:30 | PRG ---
DATE OF SERVICE: 11/18/2019 SUBJECTIVE: The patient is a 68-year-old female with right distal comminuted femur fracture and right fibular fracture undergoing rehabilitation. The patient states that yesterday she decided on the [facility]. I believe that pet house sitter has been faxing information over to try to get this arranged. The patient states that her right leg hurts, but pain is stable. OBJECTIVE: VITAL SIGNS: Temperature 98.0, pulse 71, respiration rate 18, O2 saturation 94% on 3.5 L, blood pressure 121/58. GENERAL: The patient is awake, alert, and oriented, in no acute distress. CARDIOVASCULAR: Regular rate and rhythm without murmurs, gallops, or rubs. LUNGS: Coarse diffusely without wheezes. The patient has normal respiratory effort. ABDOMEN: Soft, obese, nontender to palpation with bowel sounds present. EXTREMITIES: There is no clubbing or cyanosis. The patient has trace pedal edema. MUSCULOSKELETAL: The patient has a straight leg brace in place on the right lower extremity. PSYCHIATRIC: The patient displays an appropriate mood and affect. LABORATORY DATA: Accu-Cheks 147, 187, 112, 121. ASSESSMENT AND PLAN: 1. Right distal comminuted femur fracture with right fibular fracture: The patient will need follow up with Ortho in about 2 weeks. The patient continues with therapy services. Working on discharge planning at this point. 2. Chronic obstructive pulmonary disease with chronic oxygen use: Continue O2. Continue nebs. 3. Anemia secondary to acute blood loss: We will repeat a CBC tomorrow. Hemoglobin was stable at last check at 7.7, following her transfusion. 4. Chronic systolic congestive heart failure with an EF of 45% to 50%. The patient has no signs of volume overload at this time. We will continue current medications. 5. Chronic kidney disease stage 4: We will repeat a BMP tomorrow to trend the creatinine. Job ID: [id number]
[2019-11-18] MEDS: Gabapentin 400 MG CAP PO SCH ×2 (09:41→20:38)
[2019-11-18] MEDS: HumaLOG 300 UNITS/3 ML VIAL SC PRN ×2 (12:01→20:43)
[2019-11-18] MEDS: Atorvastatin Calcium 10 MG TAB PO SCH (20:39)
[2019-11-18] MEDS: Amitriptyline HCl 25 MG TAB PO SCH (20:39)
[2019-11-19 05:35] LABS: #Basophils 0.1 thou/uL (0.0-0.2); #Eosinphils 0.1 thou/uL (0.0-0.7); #Lymphocytes 1.8 thou/uL (1.20-3.40); #Monocytes 0.6 thou/uL (0.11-0.59); #Neutrophils 4.1 thou/uL (1.40-6.50); %Eosinophils 1.5 % (0.0-10.0); %Lymphocytes 27.2 % (21.0-51.0); %Monocytes 9.4 % (0.0-10.0); %Neutrophils 60.9 % (42.0-75.0); Hemoglobin 8.1 g/dL (12.0-16.0); Mean Corpuscular HGB CONC 30.1 g/dL (32.0-36.0); Mean Corpuscular Hemoglobin 29.1 pg (27.0-31.0); Mean Corpuscular Volume 96.7 fL (78.0-98.0); Mean Platelet Volume 6.5 fL (7.4-10.4); Platelet Count 238 thou/uL (130-400); RBC Distribution Width 14.5 % (11.5-14.5); Red Blood Cell (RBC) Count 2.79 mill/uL (4.20-5.40); White Blood Cell (WBC) Count 6.7 thou/uL (4.8-10.8)
[2019-11-19 05:52] LABS: Anion Gap 13 mmol/L (10-20); BUN (Urea Nitrogen) 36 mg/dL (9.8-20.1); Calc. Creatinine Clearance 48 mL/min (70-130); Calcium 8.8 mg/dL (7.8-10.44); Carbon Dioxide 28 mmol/L (23-31); Chloride 103 mmol/L (98-107); Estimated GFR-MDRD 28; Glucose 139 mg/dL (80-115); Potassium 4.5 mmol/L (3.5-5.1); Sodium 139 mmol/L (136-145)
[2019-11-19 08:20] VITALS: BP 115/57; TEMP 98.2
--- NOTE | 2019-11-19 08:35 | PRG ---
DATE OF SERVICE: 11/19/2019 SUBJECTIVE: The patient is a 68-year-old female, undergoing rehabilitation following right distal comminuted femur fracture and right fibular fracture. The patient remains nonweightbearing on the right lower extremity. Staff is currently working on long-term nursing care referrals. The patient is resting comfortably this morning, awakes and answers yes or no questions and then falls back asleep. OBJECTIVE: VITAL SIGNS: Temperature 98.4, pulse 82, respiratory rate 20, O2 saturation 92% on 3.5 L, and blood pressure 154/69. GENERAL: The patient is awake. The patient arouses to light stimulus and is in no acute distress. CARDIOVASCULAR: Regular rate and rhythm without murmurs, gallops, or rubs. LUNGS: Clear to auscultation bilaterally without wheezing or rhonchi. ABDOMEN: Soft, obese, and nontender to palpation. EXTREMITIES: There is no clubbing or cyanosis. The patient has trace pedal edema. MUSCULOSKELETAL: The patient has a straight leg brace in place on the right lower extremity. PSYCHIATRIC: The patient displays appropriate mood and affect. LABORATORY DATA: CBC: WBC 6.7, hemoglobin 8.1, hematocrit 27.0, and platelet count 238. BMP: Sodium 139, potassium 4.5, chloride 103, bicarb 28, BUN 36, creatinine 1.77, glucose 139, and calcium 8.8. Accu-Cheks 220, 137, 181, and 158. ASSESSMENT AND PLAN: 1. Right distal comminuted femur fracture with right fibular fracture: The patient continues to be nonweightbearing. The patient will have a followup in the coming weeks with Ortho. It is expected that she will be nonweightbearing for quite some time. She continues therapy with PT and OT. 2. Type 2 diabetes: Blood sugars are well controlled. 3. Chronic kidney disease, stage 4: Creatinine is stable. We are avoiding nephrotoxic agents. 4. Anemia: The patient's blood counts have now stabilized. 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 5. Chronic systolic congestive heart failure: The patient has no signs of volume overload at this time. 6. Disposition. Referrals are being sent to long-term care facilities to help with the patient's continued recovery. Job ID: [id number]
[2019-11-19] MEDS: Hydroxychloroquine Sulfate 200 MG TAB PO SCH (08:50)
[2019-11-19] MEDS: sulfaSALAzine 500 MG TAB PO SCH (08:50)
[2019-11-19] MEDS: Aspirin 81 mg Enteric Coated Tablet PO SCH (08:50)
[2019-11-19] MEDS: Folic Acid 1 MG TAB PO SCH (08:50)
[2019-11-19] MEDS: Docusate 100 MG CAP PO SCH (08:50)
[2019-11-19] MEDS: Metoprolol Tartrate 25 MG TAB PO SCH (08:50)
[2019-11-19] MEDS: traMADol HCl 50 MG TAB PO PRN ×2 (08:52→16:28)
[2019-11-19] MEDS: Budesonide 0.5 MG/2 ML NEB NEB SCH (08:54)
[2019-11-19] MEDS: Arformoterol 15 MCG/2 ML NEB NEB SCH (08:54)
[2019-11-19] MEDS: Gabapentin 400 MG CAP PO SCH (09:20)
[2019-11-19] MEDS: DULoxetine 30 MG CAP PO SCH (09:21)
[2019-11-19] MEDS: Pioglitazone HCl 15 MG TAB PO SCH (09:22)
[2019-11-19] MEDS: HumaLOG 300 UNITS/3 ML VIAL SC PRN (12:28)
--- NOTE | 2019-11-19 20:52 | DIS ---
DATE OF ADMISSION: 11/04/2019 DATE OF DISCHARGE: 11/19/2019 DISCHARGE DIAGNOSES: 1. Right distal comminuted femur fracture. 2. Right fibular fracture. 3. Chronic kidney disease, stage 4. 4. History of gastrointestinal bleed with anemia. 5. Chronic systolic congestive heart failure with ejection fraction of 45% to 50%. 6. Hypertension. 7. Type 2 diabetes. 8. Chronic pain. DISCHARGE DIAGNOSES: 1. Gabapentin 1200 mg p.o. b.i.d. 2. Tylenol 650 mg p.o. q.6 hours p.r.n. 3. Albuterol nebs q.4 hours p.r.n. 4. Amitriptyline 25 mg p.o. at bedtime. 5. Brovana 15 mcg nebs b.i.d. 6. Aspirin 81 mg p.o. daily. 7. Pulmicort 0.5 mg inhaled b.i.d. 8. Cardizem 180 mg p.o. daily. 9. Colace 100 mg p.o. b.i.d. 10. Cymbalta 60 mg p.o. daily. 11. Folic acid 1 mg p.o. daily. 12. Hydroxychloroquine 200 mg p.o. daily. 13. Metoprolol tartrate 25 mg p.o. daily. 14. Pantoprazole 40 mg p.o. b.i.d. 15. Actos 30 mg p.o. daily. 16. Pravastatin 40 mg p.o. daily. 17. Fentanyl 50 mcg patch q.72 hours. 18. Sulfasalazine 500 mg p.o. b.i.d. 19. Tramadol 50 mg p.o. q.6 hours p.r.n. breakthrough pain. HOSPITAL COURSE: The patient is a 68-year-old female, who was transferred to [place] for rehabilitation following a fall that resulted in a right distal comminuted femur fracture and right fibular fracture. The patient has remained in a straight leg brace on the right lower extremity and is nonweightbearing. The patient is due to have followup with her orthopedic surgeon in 1 to 2 weeks. The patient was seen to be managed nonoperatively. During the patient's hospitalization at [facility], she was noted to have an anemia with blood counts dropping. She did receive a transfusion and had an EGD that demonstrated ulcer at her anastomosis. The patient has a history of gastric bypass surgery and has had nonhealing ulcer at the anastomosis. While she was at [facility], the patient's hemoglobin did slowly decreased to below 7, and she received a unit of packed red blood cells about a week ago. The patient's hemoglobin has been stable and actually increasing since that time. The patient does have chronic pain, and at one point prior to any of her hospitalizations was on morphine, but had been weaned down to lower pain medications. This had to be titrated back up to a fentanyl patch when she was in the hospital with the acute fracture. So, her current regimen is a fentanyl patch with tramadol for breakthrough. This has been adequate to control the patient's pain. The patient's diabetes remained stable while in the hospital. Her creatinine varies between 1.7 and 1.9, but has also been stable. Regarding the patient's history of CHF, she has not had any signs of acute exacerbation. The patient does have COPD with chronic oxygen use at 3.5 to 4 L and is on daily nebs to help control this. The patient worked with PT and OT while she was in the hospital. She requires significant assistance with transfers, and due to the fact that her fracture will take quite some time to heal before she could possibly be cleared for weightbearing. The patient is being transferred to a long-term nursing facility for further care. DISPOSITION: 1. The patient will discharge today in stable condition to [facility]. 2. Activity, nonweightbearing on the right lower extremity until cleared by Orthopedic Surgery with Dr. Bishop. 3. Diet, diabetic. Job ID: [id number]
== END 2019-11-19 17:10 | DRG 534 ==
LOC: NAV ACUTE 18:22
PROVIDERS: ADMIT Family Medicine; ATTEND Family Medicine
DX: S72.401A Unspecified fracture of lower end of right femur, initial encounter for closed fracture (principal); N18.4 Chronic kidney disease, stage 4 (severe); I50.22 Chronic systolic (congestive) heart failure; L97.829 Non-pressure chronic ulcer of other part of left lower leg with unspecified severity; J96.10 Chronic respiratory failure, unspecified whether with hypoxia or hypercapnia; D62 Acute posthemorrhagic anemia; S82.401A Unspecified fracture of shaft of right fibula, initial encounter for closed fracture; G89.29 Other chronic pain; E11.22 Type 2 diabetes mellitus with diabetic chronic kidney disease; I25.10 Atherosclerotic heart disease of native coronary artery without angina pectoris; I12.9 Hypertensive chronic kidney disease with stage 1 through stage 4 chronic kidney disease, or unspecified chronic kidney disease; D63.1 Anemia in chronic kidney disease; M06.9 Rheumatoid arthritis, unspecified; Z96.643 Presence of artificial hip joint, bilateral; Z96.653 Presence of artificial knee joint, bilateral; J44.9 Chronic obstructive pulmonary disease, unspecified; Z90.49 Acquired absence of other specified parts of digestive tract; Z98.0 Intestinal bypass and anastomosis status; Z85.9 Personal history of malignant neoplasm, unspecified; Z95.5 Presence of coronary angioplasty implant and graft; Z90.710 Acquired absence of both cervix and uterus; Z79.4 Long term (current) use of insulin
CPT/HCPCS: 36415; 36416; 36430; 71046; 80048; 80053; 83540; 83880; 85007; 85025; 85027; 86850; 86900; 86901; 97602; J7626; P9016

== ENCOUNTER 2020-11-22 13:02 | Emergency (ER) | payer MEDICARE, OTHER ==
[2020-11-22 14:09] LABS: #Basophils 0.1 thou/uL (0.0-0.2); #Eosinphils 0.3 thou/uL (0.0-0.7); #Lymphocytes 1.9 thou/uL (1.20-3.40); #Monocytes 0.6 thou/uL (0.11-0.59); #Neutrophils 4.2 thou/uL (1.40-6.50); %Lymphocytes 26.8 % (21.0-51.0); %Monocytes 8.2 % (0.0-10.0); Mean Corpuscular HGB CONC 29.1 g/dL (32.0-36.0); Mean Corpuscular Hemoglobin 27.6 pg (27.0-31.0); Mean Platelet Volume 7.9 fL (7.4-10.4); Platelet Count 180 thou/uL (130-400); RBC Distribution Width 14.5 % (11.5-14.5); Red Blood Cell (RBC) Count 4.33 mill/uL (4.20-5.40); White Blood Cell (WBC) Count 6.9 thou/uL (4.8-10.8)
[2020-11-22 14:22] LABS: ALT (SGPT) 13 U/L (8-55); AST (SGOT) 14 U/L (5-34); Albumin 3.9 g/dL (3.4-4.8); Alkaline Phosphatase 91 U/L (40-110); Anion Gap 19 mmol/L (10-20); BUN (Urea Nitrogen) 69 mg/dL (9.8-20.1); Bilirubin, Total 0.2 mg/dL (0.2-1.2); Calc. Creatinine Clearance 0 mL/min (70-130); Calcium 9.5 mg/dL (7.8-10.44); Carbon Dioxide 25 mmol/L (23-31); Chloride 100 mmol/L (98-107); Globulin 3.4 g/dL (2.4-3.5); Glucose 392 mg/dL (80-115); Potassium 4.9 mmol/L (3.5-5.1); Protein, Total 7.3 g/dL (5.8-8.1); Sodium 139 mmol/L (136-145)
[2020-11-22] MEDS ORDERED: Sodium Chloride 0.9% 1,000 ML ONE (14:43)
[2020-11-22 14:48] LABS: Bilirubin Negative (Negative); Blood, Urine Trace (Negative); Glucose, Urine (Dipstick) Negative (Negative); Ketone, Urine Negative (Negative); Leukocyte Moderate (Negative); Nitrite Positive (Negative); Protein, Urine (Dipstick) 100 mg/dL (Neg-Trace); Urobilinogen 0.2 mg/dL (Less than 2)
[2020-11-22 14:49] LABS: Clarity Hazy (Clear)
[2020-11-22 14:57] LABS: Bacteria/HPF 4+ HPF (None Seen); RBC/HPF 0-3 HPF (0-3); Squamous Epithelial 0-3 HPF (0-3); WBC/HPF 21-50 HPF (0-3)
[2020-11-22] MEDS ORDERED: cefTRIAXone\\ROCEPHIN 1 GM VIAL ONE (16:12)
[2020-11-22] MEDS ORDERED: Sodium Chloride 0.9% 100 ML ONE (16:12)
== END 2020-11-22 17:29 | disposition home or self-care (01) ==
LOC: NAV ERS 13:02
DX: N39.0 Urinary tract infection, site not specified (principal); E86.9 Volume depletion, unspecified; M19.90 Unspecified osteoarthritis, unspecified site; N18.4 Chronic kidney disease, stage 4 (severe); J44.9 Chronic obstructive pulmonary disease, unspecified; I48.91 Unspecified atrial fibrillation; Z87.891 Personal history of nicotine dependence; Z79.899 Other long term (current) drug therapy
CPT/HCPCS: 51701; 70450; 71045; 80053; 81003; 81015; 84484; 85025; 85379; 87077; 87086; 87186; 93005; 96365; J0696; J3490; J7050